=== PATIENT | female | born 1985 | race Asian ===

== ENCOUNTER 2022-06-17 19:24 | Inpatient (IN) ==
[2022-06-18] MEDS ORDERED: PENICILLIN G POTASSIUM 6 MU in DEXTROSE 5% 250 ML IV STA (03:54)
[2022-06-18] MEDS ORDERED: LIDOCAINE 1% LOCAL 20 ML VIAL INFIL PRN (03:54)
[2022-06-18] MEDS ORDERED: OXYTOCIN 30 UNITS/500 ML BAG IV PRN ×2 (03:54→13:13)
[2022-06-18] MEDS: LACTATED RINGER'S 1,000 ML IV PRN ×2 (04:28→06:49)
--- NOTE | 2022-06-18 04:36 | Anesthesiology Consultation ---
Date of Service June 18, 2022 Assessment & Plan Chart Review Chart Review: Acceptable Risk for Surgery and Acceptable Risk for Labor Epidural Consults Requested none ASA ASA2 Proposed Anesthesia Anesthesia Type: Labor Epidural Risk / Benefits Reviewed With: PT / POA / Parent / Guardian, Accepts Plan and Informed Consent Obtained History Surgery labor epidual Height/Weight Height: 5 ft 4.9 in Weight: 77.111 kg Allergies Allergy/AdvReac Type Severity Reaction Status Date / Time No Known Allergies Allergy Verified 06/18/22 03:36 Medications Home Medications Medication Instructions Recorded Confirmed Last Taken prenat.vits,ashley,vnp-ivhk-npxee 1 tab PO DAILY 11/20/21 06/17/22 06/17/22 Active Medications Generic Name Dose Route Start Last Admin Trade Name Freq PRN Reason Stop Dose Admin Lactated Ringer's 1,000 mls @ 125 mls/hr 06/18/22 03:54 06/18/22 04:28 Lr IV 06/20/22 03:53 999 mls/hr .Q8H PRN Administration L&D Protocol Protocol Penicillin G Potassium 6 mu/ 262 mls @ 262 mls/hr 06/18/22 03:54 06/18/22 04:28 Dextrose IV 06/18/22 04:53 262 mls/hr NOW STA Administration NPO Date Last Intake of Fluids: 06/18/22 Time Last Intake of Fluids: 04:00 Date Last Intake of Solids: 06/17/22 Time Last Intake of Solids: 23:00 Past Medical History Medical History Low lying placenta nos or without hemorrhage, second trimester resolved 04/19/22 Exercise / Class Metabolic Activity II 4-5 Yardwork/Stairs/Walk up hill Past Family History Family History Father Hypertension Mother Diabetes Past Anesthesia History No Hx of Anesthesia Complications and No Family Hx of Anesthesia Complications History of PONV No Hx of PONV and No Hx of Motion Sickness Social History Smoking Status: Never smoker Hx Alcohol Use: No Hx Substance Use: No substance use type: does not use Physical Exam Vital Signs Last Vital Signs Temp 36.5 C 06/18/22 04:05 Pulse 93 H 06/18/22 04:05 Resp 20 06/18/22 04:10 BP 114/68 06/18/22 04:05 ENMT Mouth: no TMJ abnormality Thyromental Distance: > or= 3.5 Finger Breadths Mallampati Class: II Neck normal visual inspection and trachea midline; neck extension not limited Respiratory normal respiratory effort Auscultation: lungs clear to auscultation bilaterally Cardiovascular Rate/Rhythm: regular rate and regular rhythm Heart Sounds: no murmur Musculoskeletal Spine: normal cervical ROM Extremities: full ROM of extremities Neurologic moves all extremities Psychiatric Orientation: alert and oriented x 3 Testing Laboratory Results plt pending
[2022-06-18] MEDS ORDERED: METOCLOPRAMIDE HCL 20 MG in SODIUM CHLORIDE 0.9% 50 ML IV PRN (04:37)
[2022-06-18] MEDS ORDERED: diphenhydrAMINE 50 MG/ML VIAL IV PRN (04:37)
[2022-06-18] MEDS ORDERED: ONDANSETRON INJ 2 MG/ML 2 ML VIAL IV PRN (04:37)
[2022-06-18] MEDS ORDERED: ePHEDrine sulfate 50 MG/ML AMP IV PRN (04:37)
[2022-06-18] MEDS ORDERED: NALBUPHINE HCL INJ 10 MG/ML AMP IV PRN (04:37)
[2022-06-18] MEDS ORDERED: NALOXONE HCL 0.4 MG/1 ML VIAL/CARP IV PRN (04:37)
[2022-06-18] MEDS ORDERED: fentaNYL 2MCG/ML ROPIVACAINE 1.25MG/ML 100 ML BAG EPI PRN (04:37)
[2022-06-18] MEDS ORDERED: NALOXONE HCL 1 MG in SODIUM CHLORIDE 0.9% 1000ML 1,000 ML IV PRN (04:37)
[2022-06-18] MEDS ORDERED: fentaNYL citrate 100 MCG/2 ML VIAL ONE (04:38)
[2022-06-18] MEDS ORDERED: ePHEDrine sulfate 50 MG/ML AMP ONE (04:38)
[2022-06-18] MEDS ORDERED: LIDOCAINE 2%/EPINEPHRINE 1:200,000 20 ML SDV ONE (04:39)
[2022-06-18] MEDS ORDERED: fentaNYL 2MCG/ML ROPIVACAINE 1.25MG/ML 100 ML BAG EPI ONE (04:39)
[2022-06-18] MEDS ORDERED: BUPIVACAINE 0.25% 30 ML VIAL ONE (04:39)
[2022-06-18] MEDS ORDERED: SODIUM CHLORIDE 0.9% INJ 10 ML VIAL ONE (04:39)
[2022-06-18 05:23] LABS: Hematocrit (blood only) 36.3 % (34.1-44.9); Hemoglobin 12.3 g/dl (12.0-16.0); Mean Corpuscular Hemoglobin 31.8 pg (25.0-34.0); Mean Corpuscular Hgb Conc 33.9 g/dL (32.0-36.0); Mean Corpuscular Volume 93.8 fL (80.0-100.0); Mean Platelet Volume 12.3 fL (9.4-12.3); Platelet Count 107 K/uL (130-400); RDW Standard Deviation 44.3 fL (36.4-46.3); Red Blood Count 3.87 M/uL (3.93-5.22); White Blood Count 12.88 K/ul (4.8-10.8)
[2022-06-18] MEDS ORDERED: PENICILLIN G POTASSIUM 3 MU in DEXTROSE 5% 100 ML IV PRN (06:54)
[2022-06-18] MEDS ORDERED: oxyCODONE/ACETAMINOPHEN 5mg/325mg TAB PO PRN (13:13)
[2022-06-18] MEDS ORDERED: DIPHTHERIA/TETANUS/PERTUSSIS 0.5 ML SYR/VIAL IM ONE (13:13)
[2022-06-18] MEDS ORDERED: bisacodyL 10 MG SUPP PR PRN (13:13)
[2022-06-18] MEDS ORDERED: BENZOCAINE 20% AER SPR 82.5 GM CAN EXT PRN (13:13)
[2022-06-18] MEDS ORDERED: ACETAMINOPHEN 325 MG TAB PO PRN (13:13)
[2022-06-18] MEDS ORDERED: HYDROCORTISONE ACETATE 25 MG SUPP PR PRN (13:13)
--- NOTE | 2022-06-18 14:04 | Delivery Summary ---
Vaginal Delivery Summary Date of Service June 18, 2022 Vaginal Delivery Summary and 2nd Degree LAC Patient is a 36-year-old 1 P0 female EDC of 06/10/2022 who presents in active labor after having cervical balloon placed the evening of 06/17/2022. She was 7 cm upon arrival in labor and delivery she received epidural analgesia that was effective. Membranes were then ruptured spontaneously for clear fluid. She pushed effectively over intact perineum for delivery of a viable male infant. After the head was delivered there was a tight nuchal cord which was clamped and cut prior to delivering the rest of the . The had poor tone and poor respiratory effort and therefore was taken to the bed for further drying and stimulation. He was then spontaneously crying and moving all 4 limbs. The placenta was then expressed intact with a three-vessel cord. Second-degree perineal laceration was repaired with 3-0 chromic. There was disruption of the anal sphincter capsule but the muscle was intact. The capsule was reinforced with individual stitches of 2-0 Vicryl. bleeding was controlled with dilute Pitocin and fundal massage. Estimated blood loss was 500 cc. Mother and infant were doing well after delivery. [facility] – [place] Vaginal Delivery Charge Delivery Type Details: and 2nd Degree LAC
--- NOTE | 2022-06-18 14:37 | Anesthesia Procedure Note ---
Date of Service June 18, 2022 Anesthesia Post Epidural Note Vital Signs Vital Signs: Temp Pulse Resp BP Pulse Ox 37.4 C 113 H 16 112/60 99 06/18/22 13:55 06/18/22 14:34 06/18/22 14:10 06/18/22 14:34 06/18/22 13:06 Notes Mental Status: alert / awake / arousable and participated in evaluation Nausea / Vomiting: adequately controlled Pain: adequately controlled Airway Patency, RR, SpO2: stable & adequate BP & HR: stable & adequate Hydration State: stable & adequate Neuraxial Anesthesia: was administered and sensory block is resolving Anesthetic Complications: no major complications apparent and Pt Satisfied with anesthetic care Epidural: Removed without complications and With tip intact
[2022-06-18] MEDS: IBUPROFEN 600 MG TAB PO PRN ×2 (16:41→20:32)
[2022-06-18] MEDS: DOCUSATE SODIUM 100 MG CAP PO SCH (20:32)
[2022-06-19] MEDS: IBUPROFEN 600 MG TAB PO PRN ×3 (01:45→23:35)
[2022-06-19 07:03] LABS: Hematocrit (blood only) 30.1 % (34.1-44.9); Hemoglobin 10.5 g/dl (12.0-16.0); Mean Corpuscular Hemoglobin 32.5 pg (25.0-34.0); Mean Corpuscular Hgb Conc 34.9 g/dL (32.0-36.0); Mean Corpuscular Volume 93.2 fL (80.0-100.0); Mean Platelet Volume 13.3 fL (9.4-12.3); Platelet Count 90 K/uL (130-400); Platelet Estimate Decreased (Normal); RDW Coefficient of Variation 13.2 % (11.5-14.5); RDW Standard Deviation 44.2 fL (36.4-46.3); Red Blood Count 3.23 M/uL (3.93-5.22); White Blood Count 15.21 K/ul (4.8-10.8)
--- NOTE | 2022-06-19 07:32 | Obstetrical Progress Note ---
Date of Service <Davonte StackAndrea Miryam - Last Filed: 06/19/22 07:32> June 19, 2022 Assessment & Plan <Davonte Witt - Last Filed: 06/19/22 07:32> (1) Encounter for care and examination after delivery: - Feels well today. Eating well, ambulating well. - Katz in place. - Pain well controlled with ibuprofen 600mg Q4H PRN - Routine care -- OOB, ambulation, diet progression as tolerated - After discharge will have 6 week follow-up with Dr. Gonzalez (2) Urinary retention: - Patient was having some urinary retention yesterday after delivery. - Has had Katz in place overnight. - Plan to remove Katz today and do PV bladder scans. <Meagan Andres, DO - Last Filed: 06/19/22 07:48> (1) Encounter for care and examination after delivery: (2) Urinary retention: Subjective <Davonet StackAndrea Witt - Last Filed: 06/19/22 07:32> Ambulation: ambulating normally Voiding: katz catheter in place Passing Gas:: Yes Diet Tolerance:: regular diet Lochia:: Small Feeding Type:: bottle feeding Current Pain Level(1-10): 3 Patient is a 36 y/o female who is now PPD # 1 following spontaneous vaginal delivery + IOP at 41 weeks. Reports feeling well overall this morning. Mild abdominal cramping & 3/10 pain well managed on analgesics. Trouble with urination overnight and has a katz in place. Tolerating meals overnight and ab le to ambulate some. Able to pass gas. Has some persistent lochia with some improvement this morning. Currently bottle feeding. Review of Systems Denies fever, chills, sweats Denies shortness of breath, difficulty breathing, chest pain, palpitations, chest pressure. Denies breast pain. Denies dysuria. Denies headache or changes in vision. Physical Exam <Davonte StackAndrea MiryamDO - Last Filed: 06/19/22 07:32> General: Alert, oriented. No acute distress. Cardiac: Regular rate and rhythm, no murmurs/rubs/gallops. Respiratory: Clear to auscultation bilaterally a/p, no wheezes/rales/rhonchi. No increased work of breathing. Symmetrical chest rise. No respiratory distress. Abdomen: Soft, nontender, nondistended. Bowel sounds present. Uterus: Uterine fundus firm, palpable 3 cm below umbilicus. Lower Extremities: No lower extremity edema or swelling. No deep calf pain. Sharmin's negative bilaterally. Results & Data ([facility]) <Davonte Witt DO - Last Filed: 06/19/22 07:32> Vital Signs (Past 12 Hours) Vital Signs Temp Pulse Pulse Resp BP Pulse Ox O2 Del Method 06/19/22 03:45 36.4 C L 77 18 103/66 06/19/22 00:00 36.6 C 96 H 18 110/70 06/18/22 21:00 36.7 C 86 20 111/71 98 Room Air <Meagan Andres DO - Last Filed: 06/19/22 07:48> Co-Signing Physician Notes Resident Physician Supervision Note: I was present with Dr. Witt during the history and exam. I discussed the case with the resident and agree with the findings and plan as documented in the note. Any exceptions or clarifications are listed here: PPD#1 doing well. Urinary retention yesterday, had katz catheter placed - has had adequate urine output. Goal for today is to remove katz and do voiding trial. Discussed goals of ambulation and PO hydration. Documented By: Meagan Andres DO Resident Activity Tracking <Davonte Witt DO - Last Filed: 06/19/22 07:32> Resident Involvement: Resident Care Provided Care Provided: OB Delivery
[2022-06-19] MEDS: PRENATAL VITAMIN 1 TAB PO SCH (08:38)
[2022-06-19] MEDS: DOCUSATE SODIUM 100 MG CAP PO SCH ×2 (08:38→20:07)
[2022-06-19 09:34] LABS: Alanine Aminotransferase 12 U/L (7-52); Albumin Globulin Ratio 1.1 (0.9-2); Albumin Level 2.8 gm/dl (3.4-5.0); Alkaline Phosphatase 102 U/L (34-104); Anion Gap 7 (3-11); Aspartate Aminotransferase 25 U/L (13-39); BUN Creatinine Ratio 15.2 (10-20); Bilirubin,Total 0.6 mg/dl (0.2-1.0); Blood Urea Nitrogen 7 mg/dl (6-23); Calcium 8.5 mg/dl (8.5-10.1); Carbon Dioxide 23 mmol/L (21-32); Chloride 109 mmol/L (98-107); Creatinine Clr Calc Pharmacy 176.6 ml/min; Est GFR (African American) > 150.0 ml/min; Est GFR (Non-African American) 129.8 ml/min; Globulin 2.5 gm/dl (2.5-4.0); Glucose 100 mg/dl (70-99(Fasting)); Potassium 3.4 mmol/L (3.5-5.1); Sodium 139 mmol/L (136-145); Total Protein 5.3 gm/dl (6.0-8.3)
[2022-06-19] MEDS ORDERED: bisacodyL 5 MG TABEC PO SCH (20:00)
[2022-06-20 06:33] LABS: Hematocrit (blood only) 30.6 % (34.1-44.9); Hemoglobin 10.4 g/dl (12.0-16.0); Mean Corpuscular Hemoglobin 31.6 pg (25.0-34.0); Mean Platelet Volume 12.8 fL (9.4-12.3); Platelet Count 132 K/uL (130-400); RDW Coefficient of Variation 12.8 % (11.5-14.5); RDW Standard Deviation 43.8 fL (36.4-46.3); Red Blood Count 3.29 M/uL (3.93-5.22); White Blood Count 13.11 K/ul (4.8-10.8)
--- NOTE | 2022-06-20 07:43 | Obstetrical Progress Note ---
Date of Service <Davonte StackAndrea Miryam - Last Filed: 06/20/22 07:43> June 20, 2022 Assessment & Plan <Davonte StackAndrea Miryam - Last Filed: 06/20/22 07:43> (1) Encounter for care and examination after delivery: - Feels well today. Eating well, voiding well, ambulating well. - Pain well controlled with ibuprofen 600mg Q4H PRN - Routine care -- OOB, ambulation, diet progression as tolerated - After discharge will have 6 week follow-up with Dr. Lisa Rod to be D/C today (2) Urinary retention: -Urinary retention has resolved. -PV bladder scan yesterday show 23ml -No further intervention is needed at this time. <Jad Perrin MD - Last Filed: 06/21/22 09:56> (1) Encounter for care and examination after delivery: (2) Urinary retention: Subjective <Davonte StackAndrea Witt DO - Last Filed: 06/20/22 07:43> Ambulation: ambulating normally Voiding: no voiding problems Passing Gas:: Yes Diet Tolerance:: regular diet Lochia:: Small Feeding Type:: bottle feeding Current Pain Level(1-10): 0 Patient is a 36 y/o female who is now PPD # 2 following spontaneous vaginal delivery at 41 weeks. Reports feeling well overall this morning. Mild abdominal cramping & 2/10 pain well managed on analgesics. Voiding well. Tolerating meals overnight and able to ambulate some. Able to pass gas and has had a normal bowel movement. Has some persistent lochia with some improvement this morning. Currently bottle feeding. Review of Systems Denies fever, chills, sweats Denies shortness of breath, difficulty breathing, chest pain, palpitations, chest pressure. Denies breast pain. Denies dysuria. Denies headache or changes in vision. Physical Exam <Davonte StackAndrea Witt DO - Last Filed: 06/20/22 07:43> General: Alert, oriented. No acute distress. Cardiac: Regular rate and rhythm, no murmurs/rubs/gallops. Respiratory: Clear to auscultation bilaterally a/p, no wheezes/rales/rhonchi. No increased work of breathing. Symmetrical chest rise. No respiratory distress. Abdomen: Soft, nontender, nondistended. Bowel sounds present. Uterus: Uterine fundus firm, palpable 3-4 cm below umbilicus. Lower Extremities: No lower extremity edema or swelling. No deep calf pain. Sharmin's negative bilaterally. Results & Data ([facility]) <Davonte Witt DO - Last Filed: 06/20/22 07:43> Vital Signs (Past 12 Hours) Vital Signs Temp Pulse Resp BP Pulse Ox O2 Del Method 06/19/22 23:30 36.6 C 89 20 111/73 98 Room Air <Jad Perrin MD - Last Filed: 06/21/22 09:56> Co-Signing Physician Notes Patient seen and evaluated with resident and agree with the above findings and plan. Stable for discharge. Resident Activity Tracking <Davonte Witt DO - Last Filed: 06/20/22 07:43> Resident Involvement: Resident Care Provided Care Provided: OB Delivery
[2022-06-20] MEDS: PRENATAL VITAMIN 1 TAB PO SCH (08:04)
[2022-06-20] MEDS: IBUPROFEN 600 MG TAB PO PRN (08:04)
[2022-06-20] MEDS: DOCUSATE SODIUM 100 MG CAP PO SCH (08:04)
== END 2022-06-20 14:34 | disposition home or self-care (01) | DRG 807 ==
LOC: 4S1 06-18 03:52 → 4E2 06-18 16:50
DX: Z3A.41 41 weeks gestation of pregnancy; Z37.0 Single live birth; O70.1 Second degree perineal laceration during delivery; R33.9 Retention of urine, unspecified